=== PATIENT | female | born 1935 | race Caucasian/White ===

== ENCOUNTER 2017-06-27 11:45 | Emergency (ER) | payer OTHER ==
[~2017-06-27] VITALS: Ht 165.1 cm; Wt 68.0 kg
--- NOTE | 2017-06-27 12:33 | ED MVC/FALL/TRAUMA COMPLAINT ---
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 +HEADSTRIKE. DENIES LOC. C/O LEFT SIDED NECK PAIN (DENIES C-SPINE TENDERNESS), PAIN TO LEFT SHOULDER/ARM. Triage Nurses Notes Reviewed? yes HPI: 82F PMH HTN presents with fall down a flight of stairs. Was walking up the stairs from her basement, reached for the door handle, missed it, and fell backwards, tumbling down a full fight of stairs. She has no symptoms prior to the fall and was in her usual state of health. She did not lose consciousness, but may have hit her head. She was able to get up and walk up the stairs unassisted after the fall, and was tended to by her . Currently, she feels well. She has some left sided neck pain. She has no neurological complaints. She is walking well and moving all extremities without pain. She denies headache, blurry vision, hearing changes, nausea, vomiting, weakness, numbness, paresthesia. Past History Travel History Traveled to [place] past 21 day No Medical History Any Pertinent Medical History? see below for history Cardiovascular: hypertension, hyperlipidemia Gastrointestinal: GERD Influenza Vaccine: 12/14/12 Surgical History Surgical History: non-contributory Psychosocial History What is your primary language Malay Tobacco Use: Never used Family History Hx Contributory? No Review of Systems Review of Systems Constitutional: Reports: no symptoms. Eyes: Reports: no symptoms. Ears, Nose, Throat, Mouth: Reports: no symptoms. Respiratory: Reports: no symptoms. Cardiovascular: Reports: no symptoms. Gastrointestinal/Abdominal: Reports: no symptoms. Genitourinary: Reports: no symptoms. Musculoskeletal: Reports: no symptoms. Skin: Reports: no symptoms. Neurological/Psychological: Reports: no symptoms. All Other Systems: Reviewed and Negative Physical Exam Physical Exam General Appearance: well developed/nourished, no apparent distress Head: atraumatic, normal appearance Eyes: Bilateral: normal appearance, PERRL, EOMI, normal inspection. Ears, Nose, Throat, Mouth: hearing grossly normal, moist mucous membrane Neck: normal inspection, supple, full range of motion, no midline tenderness Respiratory: normal breath sounds, chest non-tender, no respiratory distress Cardiovascular: regular rate/rhythm Gastrointestinal: non-tender Back: normal inspection, normal range of motion, no vertebral tenderness Extremities: normal range of motion Neurologic/Psych: no motor/sensory deficits, awake, alert, oriented x 3, normal mood/affect Skin: intact, normal color, warm/dry Core Measures ACS in differential dx? No CVA/TIA Diagnosis No Sepsis Present: No Sepsis Focused Exam Completed? No Progress Differential Diagnosis: aoritic dissection, abd injury, C/T/L spine injury, ext injury, ICH, pelvis injury, pnemothorax, spinal cord injury Plan of Care: Orders Procedure Date/time Status CT HEAD WO IV CONTRAST 06/[address] CERV SPINE WO IV CONTRAST 06/28 1231 Active Diagnostic Imaging: Viewed by Me: CT Scan. Discussed w/RAD: CT Scan. Radiology Impression: PATIENT: RUTH KRAMER PRESENT AGE: 82 PATIENT ACCOUNT NO: [id number] : 33 LOCATION: [facility] ORDERING PHYSICIAN: Mely Hector MD SERVICE DATE: 06/27/17 EXAM TYPE : CAT - CT CERV SPINE WO IV CONTRAST; CT HEAD WO IV CONTRAST EXAMINATION: CT HEAD W/O IV CONTRAST CT CERVICAL SPINE W/O IV CONTRAST CLINICAL INFORMATION: History of fall down flight of stairs. Hit head and left neck. COMPARISON: None TECHNIQUE: Head - Contiguous axial imaging of the head was performed from the skull base to the vertex without the administration of intravenous contrast, and axial images are reconstructed at 0.625 mm, 2.5 mm and 5 mm slice thickness. Cervical spine - A volumetric, helical CT acquisition of the cervical spine was obtained without contrast; in addition to the standard set of axial images, multiplanar reformatted images were provided in the coronal and sagittal imaging planes. DLP: 911 mGy-cm (total) FINDINGS: HEAD: Mild atherosclerotic calcification of the intradural vertebral arteries and cavernous carotid arteries. No evidence of intracranial hemorrhage, major vascular territory infarction, focal mass effect or midline shift. Lambert to white matter differentiation is well preserved. Mild patchy hypoattenuation of supratentorial white matter is consistent with chronic microvascular ischemic change. Also, there appear to be old lacunar infarcts in the gangliocapsular regions. The ventricles have normal size and configuration. The sulci and basilar cisterns are unremarkable. There are no extra-axial fluid collections. At the anterior aspect of the vertex of the scalp, there is an approximately 1.1 cm thick hematoma. No calvarial fracture. There is hyperostosis frontalis interna. The visualized paranasal sinuses, mastoid air cells and middle ear cavities are well aerated. 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 The visualized orbits and globes are intact. CERVICAL SPINE: There is lack of lordotic curvature of the degenerated cervical spine. The occipital condyles, C1 and C2 lateral masses, dens and atlantodental articulation are intact. There is calcification of the transverse ligament posterior to the dens (likely calcium pyrophosphate dihydrate crystal deposition ). The vertebral body heights are maintained. No acute fractures within anterior or posterior element. No prevertebral soft tissue edema. At C3-C4, there is mild degenerative disc space narrowing and disc bulge with small posterior disc osteophyte complex that indents the ventral surface of the thecal sac. Also, disc degeneration with osteophyte formation and posterior disc osteophyte complexes are observed at C4-C5 and C5-C6. There is moderate disc degenerative change and minimal disc bulge at C6-C7. The uncovertebral joint hypertrophy at C3-C4, C4-C5 and C5-C6 produces varying degrees of neural foraminal stenosis, worst on the right at C5-C6. The visualized lung apices are unremarkable. There are small, 0.3 cm and 0.9 cm hypodense nodules of the right thyroid lobe. IMPRESSION: 1. Scalp hematoma at the anterior aspect of the vertex. However, no evidence of acute intracranial pathology. No intracranial hemorrhage. 2. No acute fracture or malalignment in the degenerated cervical spine. DICTATED BY: Jonathon Dalal MD DATE/TIME DICTATED:06/27/171329 REGIONAL GUIDE:JACINTA DATE/TIME TRANSCRIBED:06/27/171329 CONFIDENTIAL, DO NOT COPY WITHOUT APPROPRIATE AUTHORIZATION. <Electronically signed in Other Vendor System> SIGNED BY: Jonathon Dalal MD 06/27/17 1346 Departure Departure Disposition: HOME OR SELF CARE Condition: Stable Clinical Impression Primary Impression: Fall down stairs Referrals: Lennie Dimas MD (PCP/Family) Additional Instructions: Follow up with your PCP. If you notice worsening headache, confusion, blurry vision, nausea, vomiting, or any other new or worsening symptom, return to ER. Departure Forms: Customer Survey General Discharge Information
--- NOTE | 2017-06-27 13:46 | CT SCAN REPORT ---
EXAMINATION: CT HEAD W/O IV CONTRAST CT CERVICAL SPINE W/O IV CONTRAST CLINICAL INFORMATION: History of fall down flight of stairs. Hit head and left neck. COMPARISON: None TECHNIQUE: Head - Contiguous axial imaging of the head was performed from the skull base to the vertex without the administration of intravenous contrast, and axial images are reconstructed at 0.625 mm, 2.5 mm and 5 mm slice thickness. Cervical spine - A volumetric, helical CT acquisition of the cervical spine was obtained without contrast; in addition to the standard set of axial images, multiplanar reformatted images were provided in the coronal and sagittal imaging planes. DLP: 911 mGy-cm (total) FINDINGS: HEAD: Mild atherosclerotic calcification of the intradural vertebral arteries and cavernous carotid arteries. No evidence of intracranial hemorrhage, major vascular territory infarction, focal mass effect or midline shift. Lambert to white matter differentiation is well preserved. Mild patchy hypoattenuation of supratentorial white matter is consistent with chronic microvascular ischemic change. Also, there appear to be old lacunar infarcts in the gangliocapsular regions. The ventricles have normal size and configuration. The sulci and basilar cisterns are unremarkable. There are no extra-axial fluid collections. At the anterior aspect of the vertex of the scalp, there is an approximately 1.1 cm thick hematoma. No calvarial fracture. There is hyperostosis frontalis interna. The visualized paranasal sinuses, mastoid air cells and middle ear cavities are well aerated. 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 The visualized orbits and globes are intact. CERVICAL SPINE: There is lack of lordotic curvature of the degenerated cervical spine. The occipital condyles, C1 and C2 lateral masses, dens and atlantodental articulation are intact. There is calcification of the transverse ligament posterior to the dens (likely calcium pyrophosphate dihydrate crystal deposition). The vertebral body heights are maintained. No acute fractures within anterior or posterior element. No prevertebral soft tissue edema. At C3-C4, there is mild degenerative disc space narrowing and disc bulge with small posterior disc osteophyte complex that indents the ventral surface of the thecal sac. Also, disc degeneration with osteophyte formation and posterior disc osteophyte complexes are observed at C4-C5 and C5-C6. There is moderate disc degenerative change and minimal disc bulge at C6-C7. The uncovertebral joint hypertrophy at C3-C4, C4-C5 and C5-C6 produces varying degrees of neural foraminal stenosis, worst on the right at C5-C6. The visualized lung apices are unremarkable. There are small, 0.3 cm and 0.9 cm hypodense nodules of the right thyroid lobe. IMPRESSION: 1. Scalp hematoma at the anterior aspect of the vertex. However, no evidence of acute intracranial pathology. No intracranial hemorrhage. 2. No acute fracture or malalignment in the degenerated cervical spine.
[2017-06-27 13:59] VITALS: BP 112/59
== END 2017-06-27 14:05 ==
LOC: ERH 11:45
DX: M54.2 Cervicalgia (principal)

== ENCOUNTER 2017-07-01 22:59 | Emergency (ER) | payer OTHER ==
--- NOTE | 2017-07-02 00:20 | ED MVC/FALL/TRAUMA COMPLAINT ---
History of Present Illness General Chief Complaint: Eye Problems Stated Complaint: BRUISING TO INNER CORNER OF BOTH EYES Source: patient, old records Exam Limitations: no limitations Vital Signs & Intake/Output Vital Signs & Intake/Output Vital Signs Date Time Temp Pulse Resp B/P B/P Pulse O2 O2 Flow FiO2 Mean Ox Delivery Rate 07/01 2316 Room Air 07/01 2304 97.1 93 18 178/90 97 Room Air ED Intake and Output 07/02 0000 07/01 1200 Intake Total 0 Output Total Balance 0 Intake, Oral 0 Allergies Coded Allergies: No Known Allergies (06/27/17) Triage Note: PT TO TRIAGE C/O BRUISING NOTED TO BILAT SIDES OF NOSE IN CORNERS OF EYES THAT SHE NOTICED TONIGHT. PER PT HAD FALL THURSDAY, SEEN HERE AND HAD CAT SCAN AND TONIGHT WAS TAKING OFF MAKEUP AND NOTICED BRUISING. DENIES BLURRED VISION/PAIN OR ANY COMPLAINTS. Triage Nurses Notes Reviewed? yes Onset: Abrupt Duration: day(s): (1), constant, continues in ED Timing: single episode today Severity: moderate, severe Severity Numbers: 7 Injuries/Fall Location: head, face Method of Injury: fall Loss of Consciousness: no loss of consciousness No Modifying Factors: none LMP (ages 10-50): unknown : No Patient currently breastfeeds: No HPI: 82 year old female with hx of htn presents for eval of brusing in the corner of both eyes. Patient states that she was seen here a few days ago after falling down steps. She had a CT scan of her head that was negative. She had been feeling completely fine and doing well. She states that today she noticed what she was looking in the mirror she had bruising in the medial corner of both eyes. She has no pain no changes in vision is been no additional trauma she does not take blood thinners. No pain with extraocular motion no discharge from her eyes no change in vision. (Matt Patel) Past History Travel History Traveled to [place] past 21 day No Medical History Any Pertinent Medical History? 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 No (Matt Patel) Review of Systems Review of Systems Constitutional: Reports: no symptoms. Eyes: Reports: no symptoms. Ears, Nose, Throat, Mouth: Reports: no symptoms. Respiratory: Reports: no symptoms. Cardiovascular: Reports: no symptoms. Gastrointestinal/Abdominal: Reports: no symptoms. Genitourinary: Reports: no symptoms. Musculoskeletal: Reports: no symptoms. Skin: Reports: see HPI (bruising). Neurological/Psychological: Reports: no symptoms. All Other Systems: Reviewed and Negative (Matt Patel) Physical Exam Physical Exam General Appearance: well developed/nourished, no apparent distress, alert, awake Head: atraumatic, normal appearance Eyes: Bilateral: PERRL, EOMI, normal inspection, other (see comments ). Ears, Nose, Throat, Mouth: hearing grossly normal, moist mucous membrane Neck: normal inspection, supple, full range of motion Respiratory: normal breath sounds, chest non-tender, no respiratory distress, lungs clear Cardiovascular: regular rate/rhythm, normal peripheral pulses Peripheral Pulses: 2+ radial (R), 2+ radial (L) Gastrointestinal: soft, non-tender Back: normal inspection, normal range of motion, no vertebral tenderness Extremities: normal range of motion Neurologic/Psych: no motor/sensory deficits, awake, alert, oriented x 3, normal gait Skin: intact, normal color, warm/dry Comments: There is bruising to the bilateral medial canthus. No tenderness to palpation no swelling or discharge no active bleeding. Extractor motion is intact without pain. Core Measures ACS in differential dx? No CVA/TIA Diagnosis No Sepsis Present: No Sepsis Focused Exam Completed? No (Matt Patel) Progress Differential Diagnosis: C/T/L spine injury, ext injury, ICH, contusion Plan of Care: Patient seen and evaluated. She felt a flight of stairs a few days ago was seen here had a negative head CT. She noticed this morning she had bruising to the bilateral medial canthus. She feels "fine and has no symptoms. No other signs of trauma on exam. A repeat CT scan of the head and maxillofacial areas are negative for any signs of trauma or hematomas. Reassured patient. Advised her to apply ice Tylenol as needed follow-up with primary care doctor discussed return precautions patient agrees Diagnostic Imaging: Viewed by Me: CT Scan. Discussed w/RAD: CT Scan. Radiology Impression: PATIENT: RUTH KRAMER PRESENT AGE: 82 PATIENT ACCOUNT NO: [id number] : 33 LOCATION: [facility] ORDERING PHYSICIAN: Matt SCHILLING SERVICE DATE: 07/01/17 EXAM TYPE: CAT - CT HEAD WO IV CONTRAST; CT MAXILLOFACIAL W/O CON EXAMINATION: NONCONTRAST HEAD CT NONCONTRAST MAXILLOFACIAL CT INDICATION INFORMATION: Fall 5 days ago, worsening bruising periorbital region COMPARISON: 06/27/2017 TECHNIQUE: Separate noncontrast CT examinations of the head and maxillofacial bones were performed. Coronal and sagittal images were created for each examination at the technologist workstation. DLP: 1479.54 mGy-cm FINDINGS: Head: There is no evidence of acute intracranial hemorrhage or territorial infarction. No abnormal mass-effect or midline shift is seen. Lambert to white matter differentiation is well preserved. No extra-axial fluid collections are identified. The ventricles are normal in size. There is mild periventricular white matter hypoattenuation consistent with chronic small vessel ischemic disease. The osseous structures and soft tissues are normal. The mastoid air cells are well aerated. Maxillofacial: No acute maxillofacial fractures are seen. There is mucosal thickening within maxillary sinuses inferiorly. There is minimal mucosal thickening throughout the bilateral ethmoid air cells. There is mucosal thickening along the infundibula bilaterally. The frontal sinuses and sphenoid sinuses are well-aerated. The mandibular condyles are well-seated in the condylar fossa. There is degenerative change of the left mandibular condyle. There are degenerative changes in the visualized cervical spine. The orbits demonstrate a normal appearance bilaterally. The globes are intact, and there are no suspicious findings to suggest retrobulbar hemorrhage. IMPRESSION: 1. Head: No acute intracranial findings. 2. Maxillofacial: No acute traumatic findings. Mild paranasal sinus mucosal thickening. DICTATED BY: Sedrick Kerr MD DATE/TIME DICTATED:07/02/174 POST ANESTHESIA ROOM NURSE:JACINTA DATE/TIME TRANSCRIBED:07/02/174 CONFIDENTIAL, DO NOT COPY WITHOUT APPROPRIATE AUTHORIZATION. (Jay SCHILLING,Matt) Departure Departure Disposition: HOME OR SELF CARE Condition: Stable Clinical Impression Primary Impression: Hematoma Referrals: Judie BURK,MSaima Aguila (PCP/Family) Additional Instructions: Monitor symptoms. If you have headache, worsening swelling or pain in the nasal /orbital area and return immediately. Otherwise follow-up with primary care doctor for recheck. Departure Forms: Customer Survey General Discharge Information (Matt Patel) PA/BROACH OPERATOR Co-Sign Statement Statement: ED Attending supervision documentation- x I saw and evaluated the patient. I have also reviewed all the pertinent lab results and diagnostic results. I agree with the findings and the plan of care as documented in the PA's/BROACH OPERATOR's documentation. [] I have reviewed the ED Record and agree with the PA's/BROACH OPERATOR's documentation. [] Additions or exceptions (if any) to the PAs/BROACH OPERATOR's note and plan are summarized below: [] (Avery BURK,Forest)
[2017-07-02 00:29] VITALS: BP 149/72
== END 2017-07-02 00:30 ==
LOC: ERH 22:59
DX: S05.12XA Contusion of eyeball and orbital tissues, left eye, initial encounter (principal); W10.9XXA Fall (on) (from) unspecified stairs and steps, initial encounter; Y92.9 Unspecified place or not applicable; Y93.9 Activity, unspecified